=== PATIENT | female | born 1955 | race Caucasian/White ===

== ENCOUNTER → 2016-12-24 | Outpatient (CLI) | payer BC ==
[~2016-12-24] MED LIST: ASPI-557 PO; HYDR-4246 PO; LISI2.5T2 PO; MELO-267 PO; METF10002 PO; OMEP20CA10 PO; PRAV10TA42 PO
== END ==
LOC: WC.BC 12:48
DX: Z12.31 Encounter for screening mammogram for malignant neoplasm of breast (principal); N64.59 Other signs and symptoms in breast
CPT/HCPCS: 77063; G0202